=== PATIENT | male | born 1995 | race Two or more races ===

== ENCOUNTER 2022-01-02 12:03 | Emergency (ER) | payer SELFPAY ==
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
== END 2022-01-02 12:23 | disposition home or self-care (01) ==
LOC: ER 12:13
DX: F10.129 Alcohol abuse with intoxication, unspecified (principal); Y90.9 Presence of alcohol in blood, level not specified